=== PATIENT | male | born 1975 | race Caucasian/White ===

== ENCOUNTER 2025-03-09 15:22 | Emergency (ER) | payer SELFPAY ==
--- NOTE | 2025-03-09 | ECG_ITS ---
Test Reason : REPEAT Blood Pressure : */* mmHG Vent. Rate : 52 BPM Atrial Rate : 52 BPM P-R Int : 164 ms QRS Dur : 112 ms QT Int : 450 ms P-R-T Axes : 24 -40 0 degrees QTcB Int : 418 ms Sinus bradycardia Left axis deviation Minimal voltage criteria for LVH, may be normal variant ( Ramírez product ) Possible Inferior infarct Abnormal ECG When compared with ECG of 09-Mar-2025 15:27, Premature ventricular complexes are no longer Present Referred By: Levi Briceño Electronically Signed By: CLIFTON FOWLER MD
--- NOTE | ~2025-03-09 | XR_ITS ---
CLINICAL HISTORY: chest pain Chest Radiographs, 2 views Comparison: None Findings: No cardiomegaly. Normal mediastinal contours. No pneumothorax. Question peribronchial thickening. No pleural effusion. Normal upper abdomen. No acute fracture. Impression: Question peribronchial thickening which may indicate bronchitis. This document has been electronically signed by: Sarah White MD on 03/09/2025 17:06:23
--- NOTE | 2025-03-09 15:25 | ECG_ITS ---
Test Reason : CP Blood Pressure : */* mmHG Vent. Rate : 96 BPM Atrial Rate : 96 BPM P-R Int : 148 ms QRS Dur : 100 ms QT Int : 378 ms P-R-T Axes : 38 -42 47 degrees QTcB Int : 477 ms Sinus rhythm with occasional Premature ventricular complexes Left axis deviation Minimal voltage criteria for LVH, may be normal variant ( Ramírez product ) Cannot rule out Inferior infarct , age undetermined Anteroseptal infarct , age undetermined Abnormal ECG No previous ECGs available Referred By: Char Goldman Electronically Signed By: CLIFTON FOWLER MD
[2025-03-09 15:34] VITALS: BP 196/87; PULSE 83; RESP 18; TEMP 36.8; O2SAT 97; BMI 33.2
--- NOTE | 2025-03-09 15:34 | ED_ITS ---
HPI - General Adult General Chief complaint: Chest Pain Stated complaint: upper abd pain lower chest pain Time Seen by Provider: 03/09/25 18:01 Source: patient Mode of arrival: ambulatory Limitations: no limitations History of Present Illness ED Provider: Dr. Levi Briceño HPI narrative: 49-year-old male with a history of polysubstance use disorder, hyperlipidemia, myocardial infarction, GERD, hidradenitis suppurativa who presents emergency department for evaluation of constant indigestion pain that started yesterday afternoon. pain came on at rest. Patient states that the pain is feels like his heartburn. The pain waxes and wanes in intensity. The pain is worse if he sits up or bends over. At the time of my evaluation, the pain was a pressure- like pain which was 1/10. The patient did have nausea and multiple episodes of vomiting yesterday. He denied fever, chills, shortness of breath, pain in his neck, jaw, back, arms. Patient states the pain was different than in his heart attack pain. Patient did get sweaty with the pain. He did feel lightheaded and dizzy yesterday but not today. Related Data Previous Rx's ?Medication ?Instructions ?Recorded acetaminophen 500 mg tablet 1,000 mg (2 x 500 mg) PO Q6H PRN 03/09/25 (Tylenol Extra Strength) fever or pain #20 tabs ibuprofen 400 mg tablet 400 mg PO TID PRN fever or pain 03/09/25 #30 tabs Allergies Allergy/AdvReac Type Severity Reaction Status Date / Time erythromycin base Allergy Unknown Verified 03/09/25 15:37 rifampin Allergy Diarrhea Verified 03/09/25 15:37 vancomycin Allergy Unknown Verified 03/09/25 15:37 Review of Systems 2 Review of Systems: Yes all other systems are reviewed and are negative [facility] Past Medical History [facility] Narrative: Social history: The patient smokes less than 1 pack of cigarettes per day times 30 years. He denies alcohol use. He denies recent drug use except for marijuana Social History Social History Smoked in Last 30 Days: Yes Use of substances other than those prescribed or required for medical reasons: Yes Substance Use Type: Prescription Drugs Substance Use Frequency: Occasionally Last Used Substance: Just Prior to Admission Any prior treatment program specific to substance use: No Advance Directives: No Advance Directives Information Provided: No Physical Exam ED Vital Signs: Vital Signs - 24 hr 03/09/25 15:34 03/09/25 15:45 03/09/25 17:57 Temperature 98.3 F 98.2 F 98.3 F Pulse Rate 83 65 40 L Respiratory Rate 18 16 16 Blood Pressure 196/87 H 178/80 H 170/79 H Pulse Oximetry 97 93 98 Oxygen Delivery Method Room Air Room Air Room Air 03/09/25 20:10 03/09/25 20:10 Temperature 97.5 F 97.5 F Pulse Rate 64 64 Respiratory Rate 20 20 Blood Pressure 156/92 H 156/92 H Pulse Oximetry 95 95 Oxygen Delivery Method Room Air Room Air BMI result Body Mass Index 33.2 vital signs revealed elevated blood pressures otherwise unremarkable. Exam: General: Awake, alert in no distress Head: Normocephalic, atraumatic EENT: PERRL, Lids normal, sclera normal, conjunctiva normal, nose normal , ears normal, throat without erythema or exudates Neck: Supple, no adenopathy Lung: breath sounds symmetric, no wheezing, rales or rhonchi Chest: symmetric movement, tenderness with palpation to the right anterior chest wall Heart: regular rate and rhythm, normal S1, S2 no murmurs or rubs Abdomen: soft, mild to moderate epigastric tenderness, nondistended, normal bowel sounds Back: no vertebral tenderness, no CVAT Extremities: no deformities, moves all extremities symmetrically Neuro: Awake, alert, oriented, normal speech, cranial nerves intact, moves all extremities symmetrically Psych: Pleasant, cooperative Course Course Course Narrative: RME performed by Char Goldman PA-C. Patient is a 49 year old assigned male at presenting to the emergency department with chest pain. Patient states he has a history of stents and is concerned he is having another heart attack. Detailed physical exam and review of systems are deferred to the care clinician. EKG, labs, imaging, swabs ordered. Patient placed back in the waiting room pending room availability and results. Medications Administered Discontinued Medications Generic Name Dose Route Start Last Admin Trade Name Freq PRN Reason Stop Dose Admin Morphine Sulfate 4 mg 03/09/25 18:19 03/09/25 18:23 Morphine Sulfate 4 Mg/Ml Cartridge IVPUSH 03/09/25 18:20 4 mg ONCE STA Administration Protocol Morphine Sulfate 4 mg 03/09/25 18:48 03/09/25 18:52 Morphine Sulfate 4 Mg/Ml Cartridge IVPUSH 03/09/25 18:49 4 mg ONCE ONE Administration Protocol Naloxone HCl 8 mg 03/09/25 19:59 03/09/25 20:07 Naloxone Hcl Nasal Take Home 4 Mg [place] NOSTRILALT 03/09/25 20:00 8 mg ONCE ONE Administration Ondansetron HCl 4 mg 03/09/25 18:49 03/09/25 18:52 Ondansetron Hcl 4 Mg/2 Ml Vial IVPUSH 03/09/25 18:50 4 mg ONCE ONE Administration Medical Decision Making Medical Decision Making [facility] Narrative: 49-year-old male with a history of polysubstance use disorder, hyperlipidemia, myocardial infarction, GERD, hidradenitis suppurativa who presents emergency department for evaluation of constant indigestion pain that started yesterday afternoon. pain came on at rest. Patient states that the pain is feels like his heartburn. The pain waxes and wanes in intensity. The pain is worse if he sits up or bends over. At the time of my evaluation, the pain was a pressure- like pain which was 1/10. The patient did have nausea and multiple episodes of vomiting yesterday. He denied fever, chills, shortness of breath, pain in his neck, jaw, back, arms. Patient states the pain was different than in his heart attack pain. Patient did get sweaty with the pain. He did feel lightheaded and dizzy yesterday but not today. vital signs revealed elevated blood pressures otherwise unremarkable physical examination did reveal right anterior chest tenderness and mild to moderate epigastric tenderness. Differential diagnosis: Includes but is not limited to Myocardial infarction, myocardial ischemia, musculoskeletal pain, GERD, gastritis, anemia, electrolyte abnormalities Course: my independent interpretation patient's laboratory evaluation is as follows: CBC was normal. Glucose elevated 144. electrolytes were normal. LFTs were normal. First high sensitivity troponin I was detectable but not elevated 11.6. Repeat 2 hour troponin was 15 which is not a significant delta and is still within the normal range for troponin in a male. Drug screen urine was positive for opiates, fentanyl, cocaine and cannabis. the patient developed increased pain while he was here in the emergency department and became diaphoretic. Initial EKG did not reveal any signs for acute ischemia or infarction. Patient had 2 more repeat EKGs which again revealed no significant abnormalities. At this time I do not think that the patient's pain is secondary to myocardial injury or myocardial infarction especially given the negative delta in the 2 high sensitive troponin I values today. The patient's pain is most likely musculoskeletal or secondary to gastritis and I did discuss this with the patient. Patient's pain did increase in he was given morphine 4 mg IV 2 with improvement of his pain. The patient's drug screen urine was positive for opiates, fentanyl, cocaine and THC. I did discuss this finding with the patient and emphasize the dangers of using street drugs with the patient. Patient is not interested in getting into a detox program I have this time. Patient was discharged home with intranasal Narcan rescue doses and follow up instructions if he changes his mind and wants to get help with his polysubstance use disorder. Lab Data 03/09/25 15:56 03/09/25 15:56 Labs: Lab Results 03/09/25 03/09/25 03/09/25 Range/Units 15:56 15:58 17:41 WBC 9.1 (4.8-10.8) X10*3/uL RBC 5.15 (4.60-5.80) X10*6/uL Hgb 15.0 (14.0-18.0) g/dl Hct 45.2 (42.0-52.0) % MCV 87.8 (80.0-98.0) fL MCH 29.1 (27.0-33.0) pg MCHC 33.2 (31.0-36.0) g/dl RDW 14.2 (11.0-16.0) % Plt Count 305 (160-400) X10*3/uL MPV 9.8 (9.4-12.4) fL Immature Gran % (Auto) 0.3 (0.0-0.4) % Neut % (Auto) 74.7 H (45-73) % Lymph % (Auto) 18.8 L (20-40) % [place] % (Auto) 4.1 (2-11) % Eos % (Auto) 1.8 (0-4) % Baso % (Auto) 0.3 (0-2) % Lymph # (Auto) 1.7 (1.2-4.9) X10*3/uL [place] # (Auto) 0.4 (0.1-1.2) X10*3/uL Eos # (Auto) 0.2 (0.0-0.4) X10*3/uL Baso # (Auto) 0.0 (0.0-0.2) X10*3/uL Abs Immat Gran (auto) 0.03 (0.00-0.03) X10*3/uL Absolute Neuts (auto) 6.8 (2.0-8.3) x10*3/uL Absolute Nucleated RBC 0.000 (0.0-0.012) X10*3/uL Nucleated RBC % (auto) 0.0 (0.0-0.2) /100WBC Hold Purple Top SEE NOTE PT 12.3 (10.9-12.4) SEC INR 1.1 (0.9-1.1) Sodium 140 (135-145) mmol/L Potassium 3.6 (3.3-5.1) mmol/L Chloride 101 (96-108) mmol/L Carbon Dioxide 27 (22-29) mmol/L Anion Gap 16 (12-20) BUN 6 L (9-16) mg/dL Creatinine 0.77 (0.5-1.4) mg/dL Estim Creat Clear Calc 161.5 Estimated GFR > 60 Random Glucose 144 H (60-115) mg/dL Calcium 9.6 (8.4-10.2) mg/dL Magnesium 2.0 (1.6-2.6) mg/dL Total Bilirubin 0.4 (0.0-1.0) mg/dL AST 24 (5-37) U/L ALT 17 (0-40) U/L Alkaline Phosphatase 106 (39-117) U/L Troponin I High Sens 11.6 15.0 (<3.5-35.0) ng/L Total Protein 8.3 H (6.5-8.0) g/dL Albumin 4.2 (3.5-5.0) g/dL Lipase 12 (8-78) U/L Urine Color Urine Appearance Urine pH (5.0-9.0) Ur Specific [place] (1.005-1.025) Urine Protein (Neg-Trace) mg/dL Urine Glucose (UA) (Negative) mg/dL Urine Ketones (Negative) mg/dL Urine Blood (Negative) Urine Nitrite (Negative) Ur Leukocyte Esterase (Negative) Urine RBC (0-2) /HPF Urine WBC (0-5) /HPF Ur Squamous Epith Cells (0-2) /HPF Urine Bacteria (None Seen) Hyaline Casts (0-2) /LPF Urine Opiates Screen (Not Detect) Ur Buprenorphine Scrn (Not Detect) ng/mL Ur Oxycodone Screen (Not Detect) ng/mL Urine Methadone Screen (Not Detect) ng/mL Urine Fentanyl Screen (Not Detect) Ur Barbiturates Screen (Not Detect) Ur Phencyclidine Scrn (Not Detect) Ur Amphetamines Screen (Not Detect) U Benzodiazepines Scrn (Not Detect) Urine Cocaine Screen (Not Detect) U Marijuana (THC) Screen (Not Detect) Influenza Type A (PCR) NEGATIVE (Negative) Influenza Type B (PCR) NEGATIVE (Negative) RSV RNA Qual (PCR) NEGATIVE (Negative) SARS-CoV-2 RNA (RT-PCR) NEGATIVE (Negative) 03/09/25 Range/Units 18:14 WBC (4.8-10.8) X10*3/uL RBC (4.60-5.80) X10*6/uL Hgb (14.0-18.0) g/dl Hct (42.0-52.0) % MCV (80.0-98.0) fL MCH (27.0-33.0) pg MCHC (31.0-36.0) g/dl RDW (11.0-16.0) % Plt Count (160-400) X10*3/uL MPV (9.4-12.4) fL Immature Gran % (Auto) (0.0-0.4) % Neut % (Auto) (45-73) % Lymph % (Auto) (20-40) % [place] % (Auto) (2-11) % Eos % (Auto) (0-4) % Baso % (Auto) (0-2) % Lymph # (Auto) (1.2-4.9) X10*3/uL [place] # (Auto) (0.1-1.2) X10*3/uL Eos # (Auto) (0.0-0.4) X10*3/uL Baso # (Auto) (0.0-0.2) X10*3/uL Abs Immat Gran (auto) (0.00-0.03) X10*3/uL Absolute Neuts (auto) (2.0-8.3) x10*3/uL Absolute Nucleated RBC (0.0-0.012) X10*3/uL Nucleated RBC % (auto) (0.0-0.2) /100WBC Hold Purple Top PT (10.9-12.4) SEC INR (0.9-1.1) Sodium (135-145) mmol/L Potassium (3.3-5.1) mmol/L Chloride (96-108) mmol/L Carbon Dioxide (22-29) mmol/L Anion Gap (12-20) BUN (9-16) mg/dL Creatinine (0.5-1.4) mg/dL Estim Creat Clear Calc Estimated GFR Random Glucose (60-115) mg/dL Calcium (8.4-10.2) mg/dL Magnesium (1.6-2.6) mg/dL Total Bilirubin (0.0-1.0) mg/dL AST (5-37) U/L ALT (0-40) U/L Alkaline Phosphatase (39-117) U/L Troponin I High Sens (<3.5-35.0) ng/L Total Protein (6.5-8.0) g/dL Albumin (3.5-5.0) g/dL Lipase (8-78) U/L Urine Color Yellow Urine Appearance Clear Urine pH 8.0 (5.0-9.0) Ur Specific [place] <= 1.005 (1.005-1.025) Urine Protein Negative (Neg-Trace) mg/dL Urine Glucose (UA) Negative (Negative) mg/dL Urine Ketones Negative (Negative) mg/dL Urine Blood Negative (Negative) Urine Nitrite Negative (Negative) Ur Leukocyte Esterase Negative (Negative) Urine RBC 0-2 (0-2) /HPF Urine WBC 0-5 (0-5) /HPF Ur Squamous Epith Cells 0-2 (0-2) /HPF Urine Bacteria None Seen (None Seen) Hyaline Casts 0-2 (0-2) /LPF Urine Opiates Screen POSITIVE H (Not Detect) Ur Buprenorphine Scrn Not Detected (Not Detect) ng/mL Ur Oxycodone Screen Not Detected (Not Detect) ng/mL Urine Methadone Screen Not Detected (Not Detect) ng/mL Urine Fentanyl Screen POSITIVE H (Not Detect) Ur Barbiturates Screen Not Detected (Not Detect) Ur Phencyclidine Scrn Not Detected (Not Detect) Ur Amphetamines Screen Not Detected (Not Detect) U Benzodiazepines Scrn Not Detected (Not Detect) Urine Cocaine Screen POSITIVE H (Not Detect) U Marijuana (THC) Screen POSITIVE H (Not Detect) Influenza Type A (PCR) (Negative) Influenza Type B (PCR) (Negative) RSV RNA Qual (PCR) (Negative) SARS-CoV-2 RNA (RT-PCR) (Negative) Independent Interpretation I performed an independent interpretation of an: EKG and Plain X-Ray Interpretation: EKG 1. my interpretation of the patient's 12 EKG done on 03/09/2025 at 15:27 hours is as follows: Normal sinus rhythm with a rate of 98, normal CA interval, prolonged QRS duration of 100 milliseconds, prolonged QTC interval of 477 milliseconds, occasional PVC, no ST segment elevation, no ST segment depression, poor R-wave progression V1 through V2 EKG 2. my interpretation of the patient's 12 EKG done on 03/09/2025 at 18:03 hours is as follows: Sinus bradycardia with a rate of 52, normal CA interval, prolonged QRS duration of 112 milliseconds, normal QT interval of 418 milliseconds, no ST segment elevation, no ST segment depression, no significant T-wave abnormalities, PVCs seen on previous EKG not present. Bradycardia is new, prolonged QTC has resolved. EKG 3. my independent interpretation of the patient's 12 EKG done on 03/09/2025 at 18:09 hours is as follows: Sinus rhythm rate of 60, normal CA interval, prolonged QRS duration of 104 milliseconds, normal QTC interval, no ST segment elevation, no ST segment depression, no significant T-wave abnormalities, no PVCs, no PACs, Q-waves V1 through V3 still present. My independent interpretation of the patient's 2-view chest x-ray is as follows: No acute disease Radiology Impression Discussion of test interpretation with radiology: I have reviewed the radiologist's reading. Radiologist Impression: Chest Radiographs, 2 views Comparison: None Findings: No cardiomegaly. Normal mediastinal contours. No pneumothorax. Question peribronchial thickening. No pleural effusion. Normal upper abdomen. No acute fracture. Impression: Question peribronchial thickening which may indicate bronchitis. This document has been electronically signed by: Sarah White MD on 03/09/2025 17:06:23 Critical Care Time Critical Care Time Critical Care Time: Yes Total Critical Care Time: 45 Attestation: Critical Care: The patient was critically ill with a high probability of imminent or life threatening deterioration. I spent greater than 30 minutes of discontinuous time evaluating the patient,delivering critical care at the bedside, discussing and evaluating pertinent data with consultants. Critical care time does not include time spent performing separately billable procedures or teaching. Total time spent performing critical care was 45 minutes. Discharge Plan Discharge Clinical Impression: Chest pain, Abdominal pain, Polysubstance use disorder, Cocaine use disorder, Opiate use Patient Disposition: Home, Self-Care Instructions: Chest Pain (ED) Additional Instructions: Your EKG was unremarkable. Your marker of heart attack (high sensitive troponin I) was initially normal and then repeat was unchanged which is very reassuring suggesting that your chest pain is not caused by heart attack or heart damage. At this time I believe that your pain in your chest and abdomen is due to muscle pain. Take ibuprofen 400 mg pills,1 pills every 6 hours as needed for pain or fever. Take Tylenol (acetaminophen) 500 mg pills, 2 pills every 6 hours as needed for pain or fever. Your urine tox screen was positive for opiates, fentanyl, cocaine and marijuana. Your are being discharged home with intranasal Narcan. If you are going to continue to use heroin, you should make sure that there is a sober person with you that is not using drugs and that this person can administer intranasal Narcan in the event that you stop breathing. Continue taking medications as prescribed by your providers. Follow-up with your doctor in 2 days. Please return to the emergency department if your symptoms get worse or if you develop any symptoms that are concerning to you. Opiate use disorder You are being discharged with naloxone (narcan) to take home with you. This medication is used to potentially treat opiate overdose. If you decide you want to stop or cut down on how much you?re using, you can call or walk into our outpatient Addiction Treatment office: [facility] (M-F 9am-5p) [address] [place] [address], [address] [phone] You may have been provided with safer injection?items, please take time to take care of YOU and your health. Use new supplies whenever possible to lessen the chances of infections and other illnesses.? ?If you need more supplies, please go [facility],? [address] [place], [place] you can call or text to coordinate delivery of safer supplies. You were also provided a list of several treatment providers in the area.? If you experience any worsening symptoms you cannot control please return to the ED or call 911. Please follow up at your next appointment. Things to look out for are fevers, chest pain, shortness of breath, severe pain, dizziness, fainting or any other concerns. Prescriptions: New acetaminophen [Tylenol Extra Strength] 500 mg tablet 1,000 mg PO Q6H PRN (Reason: fever or pain) Qty: 20 0RF ibuprofen 400 mg tablet 400 mg PO TID PRN (Reason: fever or pain) Qty: 30 0RF Interventions: ED Discharge Assessment Last Done: 03/09/25 20:10 Discharge Date/Time: 03/09/25 20:11 Print Language: Hebrew
[2025-03-09 15:45] VITALS: BP 178/80; PULSE 65; RESP 16; TEMP 36.8; O2SAT 93
[2025-03-09 16:06] LABS: MANUAL DIFF FLAG NO
[2025-03-09 16:08] LABS: Basophils Percent Auto 0.3 % (0-2); Eosinophils Absolute Auto 0.2 X10*3/uL (0.0-0.4); Eosinophils Percent Auto 1.8 % (0-4); Hematocrit 45.2 % (42.0-52.0); Imm Gran Abs Auto 0.03 X10*3/uL (0.00-0.03); Imm Gran Pct Auto 0.3 % (0.0-0.4); Lymphocytes Absolute Auto 1.7 X10*3/uL (1.2-4.9); Lymphocytes Percent Auto 18.8 % (20-40); Mean Corpuscular HGB Conc 33.2 g/dl (31.0-36.0); Mean Corpuscular Hemoglobin 29.1 pg (27.0-33.0); Mean Corpuscular Volume 87.8 fL (80.0-98.0); Mean Platelet Volume 9.8 fL (9.4-12.4); Monocytes Absolute Auto 0.4 X10*3/uL (0.1-1.2); Monocytes Percent Auto 4.1 % (2-11); Neutrophils Absolute Auto 6.8 x10*3/uL (2.0-8.3); Neutrophils Percent Auto 74.7 % (45-73); Platelet Count 305 X10*3/uL (160-400); Red Blood Count 5.15 X10*6/uL (4.60-5.80); Red Cell Distribution Width 14.2 % (11.0-16.0); White Blood Count 9.1 X10*3/uL (4.8-10.8)
[2025-03-09 16:14] LABS: INTERNATIONAL NORM RATIO 1.1 (0.9-1.1); Prothrombin Time 12.3 SEC (10.9-12.4)
--- OUTSIDE RECORDS SUMMARY | 2025-03-09 16:32 | XMS_ITS | Data Portability ---
Author Organization [place] - .[facility], [facility] Address [address] [place] [address] Assessment No assessment recorded. Plan of Treatment Reminders Order Date Submit Date Provider Last Modified By Organization Details Last Modified Time Details Appointments None recorded. Lab None recorded. Referral dermatologi st referral - Urgent 2023 024 [id number] Not available 4 13:58:59 urologist referral - Urgent 2023 024 [id number] Not available 4 14:03:16 Procedures None recorded. Surgeries None recorded. Imaging None recorded. Medication Orders cephalexin 500 mg capsule 2023 024 [email or web address] [facility] #[id number] @ [address], [id number], 4 14:13:41 Bactrim DS 800 mg-160 mg tablet 2023 024 [email or web address] [facility] #[id number] @ [address], [facility] [address], [place], [id number], 4 14:13:41 Patient TargetsNo targets recorded. Patient Instructions Encounter Date Encounter Id Patient Instructions Last Modified By Organization Details Last Modified Time 04/09/2024 [id number] A healthy lifestyle: care instructions Not available 04/09/2024 11:40:34 Thank you for visiting [facility]. We may be calling you to review your lab results or schedule a follow up appointment. The call will be through an automated system which asks you to press a avery to speak with one of our agents. Please be on the lookout for this call and listen to the message in its entirety. You may also view your lab results using the [employer] kenny, available in the Kenny Store and [employer]. First-time kenny users will need to create an account; please note you? l l need to select a login and password for the kenny versus just using your patient portal login. Your lab results will be posted to the Linch[employer] kenny as soon as they? r e available. If you have any questions regarding your visit, our Aftercare department can be reached at [phone]. Our hours are Monday ? Monday from 8 am ? 11 pm or Monday/Monday from 9a ? 8p. HE HAS TO GO TO ER FOR ULTRASOUND AND IV ANTIBIOTICS. Not available 04/09/2024 11:40:33 Reason for Referral [employer] Referral for H idradenitis suppurativa Urgent Referring Physician: [facility], Encounter Date: 04/09/2024 Urologist Referral for Hidra denitis suppurativa Urgent Referring Physician: Steve Adams [facility], Encounter Date: 04/09/2024 Medical Equipment None Reported. Allergies Allergen ID Allergen Name Allergen Category Reaction Reaction Severity Criticality Documentation Date Start Date Code Code System Note Provider Name and Address Organization Details Recorded Time clindamyc in Not available Not available Not available Not available 04/09/2024 2582 RxNorm DELMA Kim - .[facility] [employer] [facility] 4 11:16:45 [id number] Medicinal product containin g macrolide and acting as antibacte rial agent (product) medicatio n Not available Not available Not available 04/09/2024 [id number] SNOMED DELMA Kim - .[facility] 4 11:17:29 Medications Name Sig Start Date Stop Date Status Note LastModified by Organization Details LastModified Time cephalexin 500 mg capsule Take 1 capsule 3 times a day by oral route for 7 days. 024 active Not Available Not Available Not Avai lable Bactrim DS 800 mg-160 mg tablet Take 1 tablet twice a day by oral route for 7 days. active Not Available Not Available Not Avai lable Vitals Date Recorded Respiratory rate Body temperature Oxygen saturation Oxygen saturation in Arterial blood by Pulse oximetry Heart rate Systolic blood pressure Diastolic blood pressure Provider Name and Address Organization Details Last Updated DateTime 16 /min 97.2 [degF] 97 % 97 % 86 /min 145 mm[Hg] 91 mm[Hg] Diogo Cha DELMA - .[facility] 4 11:23:56 Social History None recorded. Functional Status None recorded. Mental Status None recorded. Family History Nothing Reported. Medical History No medical history recorded. Past Encounters Encounter ID Performer Location Encounter Start Date Encounter Closed Date Diagnosis/Indication Diagnosis SNOMED-CT Code Diagnosis ICD10 Code Diagnosis Note [id number] Shayla Adams MD [facility] [address] [place] [address] 04/09/2024 11:12:19 04/09/2024 11:23:45 Hidradenitis suppurativa 26583539 L73.2 Cellulitis of scrotum 34 307149 N49.2 disucssed with him that he needs to go to ER for IV antibiotic s and ultrasound and possible I and D. he became very rude and said he doesn't have to do that he knows what it is and just needs antibiotic s and pain meds for us.. was unable to convince him to go to ER. however repeated stressed the need to go to ER and also told him i can give him controlled substance especially when he is asking me to sign a form for his residence. -- Health Concerns Section Related Observation LastModified by Organization Detai ls LastModified Time None Recorded Concern Status LastModified by Organization Details LastModified Time None Recorded Advance Directives Directive None Recorded Payers Insurance Date Sequence Insurance Name Policy Number Policy Pagan Covered Member ID Pagan Member ID Guarantor Name 04/12/[address] [facility] Ole Schmitz [id number] Ole Schmitz 04/12/2024 1 [facility] (MEDICAID REPLACEMENT - HMO) [facility] Ole Schmitz [id number] Ole Schmitz Notes Date Note Type Note Provider Name a pr Address Organization Details Recorded Time 04/09/2024 text/html Skin Lesion - cmdReported bypatient.Patient presents with:Skin lesion which began Pertinent findings:No fever; No wound discharge; No history of trauma;(+) pain;(+) history of similar skin complaintNotes:Pt reports having a hidradenitis flare up. Steve Adams MD [address] [place] [address], [phone] - .[facility] 04/09/2024 12:28:40
[2025-03-09 16:33] LABS: Alanine Aminotransferase 17 U/L (0-40); Albumin Level 4.2 g/dL (3.5-5.0); Alkaline Phosphatase 106 U/L (39-117); Anion Gap 16 (12-20); Aspartate Amino Transferase 24 U/L (5-37); Bilirubin Total 0.4 mg/dL (0.0-1.0); Blood Urea Nitrogen 6 mg/dL (9-16); Calcium 9.6 mg/dL (8.4-10.2); Carbon Dioxide 27 mmol/L (22-29); Chloride 101 mmol/L (96-108); Creatinine Clr Calc Pharmacy 161.5; Estimated Glomerular Filt Rate > 60; Glucose Random 144 mg/dL (60-115); Potassium 3.6 mmol/L (3.3-5.1); Sodium 140 mmol/L (135-145); Total Protein 8.3 g/dL (6.5-8.0)
[2025-03-09 16:40] LABS: Troponin-I High Sensitivity 11.6 ng/L (<3.5-35.0)
[2025-03-09 16:50] LABS: Influenza A PCR NEGATIVE (Negative); Influenza B PCR NEGATIVE (Negative); Resp Syncy Virus RNA Qual PCR NEGATIVE (Negative); SARS COV2 PCR INHOUSE NEGATIVE (Negative)
--- NOTE | 2025-03-09 17:56 | PC.NURSE ---
Pt extremely anxious, hyperverbal; pt diaphoretic but states I do that all the time! ; pt reports buying pain pills illegally to treat his RUQ pain this week; denies addiction issues at this time; SR per tele; awaiting MD to eduardo
[2025-03-09 17:57] VITALS: BP 170/79; PULSE 40; RESP 16; TEMP 36.8; O2SAT 98
--- NOTE | 2025-03-09 18:04 | ECG_ITS ---
Test Reason : REPEAT Blood Pressure : */* mmHG Vent. 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
[2025-03-09 18:15] LABS: Lipase 12 U/L (8-78)
[2025-03-09] MEDS: Morphine Sulfate 4 MG/ML CARTRIDGE IVPUSH ×2 (18:23→18:52)
[2025-03-09 18:42] LABS: Appearance Urine Clear; Color Urine Yellow; Glucose Urine UA Negative (Negative); Leukocyte Esterase Urine Negative (Negative); Nitrite Urine Negative (Negative); Specific Gravity - Urine <= 1.005 (1.005-1.025); Urine Blood Negative (Negative); Urine Ketones Negative (Negative); Urine Protein Negative (Neg-Trace)
[2025-03-09 18:48] LABS: Bacteria Urine None Seen (None Seen); Hyaline Casts Urine 0-2 /LPF (0-2); RBC Urine 0-2 /HPF (0-2); Squamous Epithelial Cell Urine 0-2 /HPF (0-2); WBC Urine 0-5 /HPF (0-5)
[2025-03-09 18:51] LABS: Amphetamine Screen Urine Not Detected (Not Detect); Barbiturates, Urine Not Detected (Not Detect); Benzodiazepines Screen Urine Not Detected (Not Detect); Buprenorphine Scr Not Detected (Not Detect); Cannabinoid Screen Urine POSITIVE (Not Detect); Cocaine Screen Urine POSITIVE (Not Detect); Fentanyl, urine POSITIVE (Not Detect); Methadone Screen, Urine Not Detected (Not Detect); Opiate Screen Urine POSITIVE (Not Detect); Oxycodone Screen Urine Not Detected (Not Detect); Phencyclidine Screen Urine Not Detected (Not Detect)
[2025-03-09] MEDS: ondansetron HCL 4 MG/2 ML VIAL IVPUSH (18:52)
--- NOTE | 2025-03-09 19:42 | MHC.EDTECH ---
assumed care of pt @1900
[2025-03-09] MEDS: Naloxone HCl Nasal TAKE HOME 4 MG SPRAY 8 MG NOSTRILALT (20:07)
[2025-03-09 20:10] VITALS: BP 156/92; PULSE 64; RESP 20; TEMP 36.4; O2SAT 95
== END 2025-03-09 20:11 | disposition home or self-care (01) ==
PROVIDERS: Physician Assistant Medical; Emergency Provider Emergency Medicine Emergency Medical Services; PCP Internal Medicine
DX: R07.89 Other chest pain (principal); R10.13 Epigastric pain; F11.90 Opioid use, unspecified, uncomplicated; F14.90 Cocaine use, unspecified, uncomplicated; R10.2 Pelvic and perineal pain; R11.0 Nausea; R42 Dizziness and giddiness; Z51.81 Encounter for therapeutic drug level monitoring; Z79.899 Other long term (current) drug therapy; Z03.818 Encounter for observation for suspected exposure to other biological agents ruled out
CPT/HCPCS: 0241U; 36415; 71046; 80053; 80307; 81001; 83690; 83735; 84484; 85025; 85610; 93005; 96374; 96375; 99284; J2270; J2405

== ENCOUNTER → 2025-03-09 15:25 | Outpatient (BNV) | payer MEDICAID, SELFPAY | PROVIDERS: Emergency Provider Emergency Medicine Emergency Medical Services; PCP Internal Medicine; Visit Provider Internal Medicine Cardiovascular Disease | DX: R94.31 Abnormal electrocardiogram [ECG] [EKG] (principal) | CPT/HCPCS: 93010 ==

== ENCOUNTER → 2025-03-09 15:34 | Outpatient (BNV) | payer MEDICAID, SELFPAY | PROVIDERS: Emergency Provider Emergency Medicine Emergency Medical Services; PCP Internal Medicine; Visit Provider Radiology Diagnostic Radiology | DX: R07.9 Chest pain, unspecified (principal) | CPT/HCPCS: 71046 ==